=== PATIENT | male | born 1965 | race Caucasian/White ===

== ENCOUNTER 2016-05-12 19:35 | Emergency (ER) | payer BC ==
--- NOTE | 2016-05-12 20:18 | EDM.PDOC ---
ED HPI Trauma - General Chief Complaint: Lower Extremity Injury/Pain Stated Complaint: POSS RIGHT LEG INFECTION Time Seen by Provider: 05/12/16 20:05 Source: Reports: Patient History Limitations: Reports: No limitations - History of Present Illness INITIAL COMMENTS - FREE TEXT/NARRATIVE: Patient presents for evaluation and treatment of swelling to the right anterior distal lower leg. Patient reports that 2 weeks ago he had some vein stripping done in [place] by Dr. Velasquez. He states that he has been healing very well. The surgical incisions are closed and healing well without erythema or drainage. He became concerned today when he noticed some slight swelling to the anterior right lower leg. He states that he has been wearing his compression stockings and walking since the surgery. Patient denies any fevers, chills, nausea, vomiting, erythema, drainage or malaise. Patient has followup in about 2 weeks. Patient reports he presented to the areas he is concerned as he has a past history of infection and cellulitis. He wants to be checked over 2 Pain/Injury Location: Reports: lower extremity, right Allergies/ADRs: Allergies No Known Allergies Allergy (Verified 03/15/16 07:28) Home Medications: Ambulatory Orders Ca Cmb No.1/Vit D3/B-6/FA/B12 [Vitamin D3 1,000 Unit] 1 tab PO BID 09/29/13 [ Confirmed 05/12/16] traZODone 50 mg PO BEDTIME 09/29/13 [Confirmed 05/12/16] Omeprazole [Prilosec] 20 mg PO DAILY #30 capsule. 09/30/13 [Confirmed 05/12/16 ] Ezetimibe [Zetia] 10 mg PO DAILY 03/13/16 [Confirmed 05/12/16] Gemfibrozil [Lopid] 600 mg PO BID 03/13/16 [Confirmed 05/12/16] Pravastatin [Pravachol] 20 mg PO DAILY 03/13/16 [Confirmed 05/12/16] Past Medical History HEENT History: Reports: Impaired vision Other HEENT History: wears eyeglasses Cardiovascular History: Reports: High cholesterol, Hypertension, Other (see below) Other Cardiovascular History: Vericose veins; vein stripping 2 weeks ago Apr 28. - Past Surgical History Musculoskeletal Surgical History: Reports: Other (see below) Other Musculoskeletal Surgeries/Procedures:: Ganglion cyst Social & Family History - Tobacco Use Smoking Status *Q: Never Smoker Used Tobacco, but Quit: Yes Month Tobacco Last Used: 1997 - Caffeine Use Caffeine Use: Reports: Coffee, Energy drinks, Soda - Alcohol Use Days Per Week of Alcohol Use: 2 Number of Drinks Per Day: 2 Total Drinks Per Week: 4 - Recreational Drug Use Recreational Drug Use: No Drug Use in Last 12 Months: No Review of Systems - Review of Systems Review Of Systems: See Below Constitutional: Denies: chills, fever GI/Abdominal: Denies: Nausea, Vomiting Musculoskeletal: Denies: leg pain, muscle pain Skin: Reports: wound (right lower leg, recent surgery - vein stripping). Denies : erythema Neurological: Denies: numbness, tingling Trauma Exam - Physical Exam Exam: See Below Exam Limited By: No limitations General Appearance: Reports: alert, WD/WN, no apparent distress Respiratory Exam: Reports: no respiratory distress Cardiovascular: Reports: normal peripheral pulses (2+ dorsalis pedis and posterior tibialis pulses bilterally), regular rate, rhythm Extremities: Reports: normal range of motion, non-tender (no pain to the calfs; negative homans sign), other (1+ pitting edema to the right anterior lower leg; negative homans sign). Denies: tenderness Neurologic: Reports: alert, normal mood/affect Skin: Reports: Normal color, Warm/dry, Other (multiple healing wounds from recent surgery to the proximal and distal right lower leg; no erythema or discharge appreciated). Denies: Ecchymosis Course - Vital Signs Last Recorded V/S: Last Vital Signs Temp 37.1 C 05/12/16 19:54 Pulse 87 05/12/16 19:54 Resp 20 05/12/16 19:54 BP 160/101 H 05/12/16 19:54 Pulse Ox 97 05/12/16 19:54 - Re-Assessments/Exams Free Text/Narrative Re-Assessment/Exam: 05/12/16 20:14 I do not see any signs of infection or any signs of a DVT. Unsure exact reason of the swelling. Possibly from his recent surgery. I will discharge home at this time. Discharge instructions this document Departure - Departure Time of Disposition: 20:16 Disposition: Home, Self-Care 01 Condition: good Clinical Impression: Pitting edema Instructions: Edema, [id number] Referrals: Tabitha Park, [employer] [Primary Care Provider] - Forms: ED Department Discharge Additional Instructions: Continue with compression stocking and elevation. Monitor the area closely. Follow-up with your PCP if not better in 1-2 weeks. Please return to the ER for any erythema, discharge, fevers, vomiting or any other concerning symptom.
== END 2016-05-12 20:29 | disposition home or self-care (01) ==
LOC: JD.ED 19:35
CPT/HCPCS: 99282; 99283